=== PATIENT | male | born 1950 | race Caucasian/White ===

== ENCOUNTER 2018-05-16 06:49 | Day surgery (SDC) | payer MEDICARE ==
[~2018-05-16] VITALS: Ht 175.3 cm; Wt 64.5 kg
[~2018-05-16 06:49] MED LIST: Augmentin 875-1 EACH PO; Zofran Odt4 MG PO
== END 2018-05-16 09:12 | disposition home or self-care (01) ==
LOC: ORSCSDS 06:49
PROVIDERS: Internal Medicine Gastroenterology
PROC: 0DBN8ZX Excision of Sigmoid Colon, Via Natural or Artificial Opening Endoscopic, Diagnostic (ICD-10-PCS; principal; 2018-05-16 08:00)
DX: Z12.11 Encounter for screening for malignant neoplasm of colon (principal); D12.5 Benign neoplasm of sigmoid colon; K57.30 Diverticulosis of large intestine without perforation or abscess without bleeding; K64.8 Other hemorrhoids; E03.9 Hypothyroidism, unspecified
CPT/HCPCS: 88305; J0330; J1980; J2405; J7120